=== PATIENT | female | born 1990 | race Hispanic/Latino ===

== ENCOUNTER 2018-09-08 16:43 | Emergency (ER) | payer SELFPAY ==
[~2018-09-08] VITALS: Ht 162.6 cm; Wt 77.1 kg
--- OUTSIDE RECORDS SUMMARY | 2018-09-08 16:46 | XMS REPORT | Clinical Summary ---
Author Author [facility] Organization [facility] Address Unknown Phone Unavailable Care Team Providers Care Batch Maker Name Role Phone Asked, No Pcp PCP Unavailable Allergies No Known Allergies Medications End Date Status Medication Sig Dispensed Refills Start Date 07/28/2018 methocarbamol Take 1 tablet 120 tablet 0 (ROBAXIN-750) 750 MG (750 mg 9 tablet total) by mouth 4 (four) times a day for 30 days. Active Problems Not on file Encounters Care Team Description Date Type Specialty Edmund Fernandez DO Acute low back pain due to trauma (Primary Dx) 06/28/2018 Emergency Emergency Medicine after 09/07/2017 Social History Date Tobacco Use Types Packs/Day Years Used Never Smoker Smokeless Tobacco: Never Used Alcohol Use Drinks/Week oz/Week Comments Yes socially Sex Assigned at Date Recorded Not on file Industry Job Start Date Occupation Not on file Not on file Not on file Travel End Travel History Travel Start No recent travel history available. Last Filed Vital Signs Time Taken Vital Sign Reading 06/28/2018 6:39 AM [facility] Blood Pressure 118/62 06/28/2018 6:39 AM [facility] Pulse 87 06/28/2018 3:49 AM [facility] Temperature 36.8 C (98.2 F) 06/28/2018 6:39 AM [facility] Respiratory Rate 17 06/28/2018 6:39 AM [facility] Oxygen Saturation 98% - Inhaled Oxygen - Concentration 06/28/2018 3:49 AM [facility] Weight 83.9 kg (185 lb) 06/28/2018 3:49 AM [facility] Height 162.6 cm (5' 4") 06/28/2018 3:49 AM [facility] Body Mass Index 31.76 Plan of Treatment Health Maintenance Due Date Last Done Comments CERVICAL CANCER SCREENING 2011 INFLUENZA VACCINE 12/07/2018 Procedures Comments Procedure Name Priority Date/Time Associated Diagnosis XR PELVIS 3+ VW STAT 06/28/2018 6:06 AM [facility] XR LUMBAR SPINE COMPLETE STAT 06/28/2018 4+ VW 6:04 AM [facility] HCG QUALITATIVE, URINE STAT 06/28/2018 SCREEN 4:59 AM [facility] after 09/07/2017 Results * XR Pelvis 3+ Vw (06/28/2018 6:06 AM [facility]) Narrative Performed At EXAMINATION:XR PELVIS 3VW [facility] CLINICAL HISTORY:Pelvic fxknown or suspected, right hip pain post fall COMPARISON:None. IMPRESSION: 1.The pelvic ring is intact. 2.The hips are symmetric in alignment. 3.There is no evidence to suggest acute fracture. [facility]-[id number] Procedure Note Interface, Radiology Results Incoming - 06/28/2018 6:12 AM [facility] EXAMINATION: XR PELVIS 3 VW CLINICAL HISTORY: Pelvic fx known or suspected, right hip pain post fall COMPARISON: None. IMPRESSION: 1. The pelvic ring is intact. 2. The hips are symmetric in alignment. 3. There is no evidence to suggest acute fracture. [facility]-[id number] Performing Organization Address City/State/Zipcode Phone Number [facility] [address] [place] [address] * XR Lumbar Spine Complete 4+ Vw (06/28/2018 6:04 AM [facility]) Narrative Performed At EXAMINATION:XR LUMBAR SPINE COMPLETE 4VW [facility] CLINICAL HISTORY:back painfall TECHNIQUE: AP, lateral bilateral posterior oblique, views of the lumbar spine were obtained. COMPARISON: None. IMPRESSION: There are 5 ljp-[id number]-lsvojet lumbar type vertebrae. There is normal lumbar lordosis. Lumbar vertebral body and intervertebral disc heights are grossly maintained. No acute lumbar spine fracture or listhesis is identified. There are no significant lumbar spine degenerative changes identified. On the oblique views, there is no evidence of spondylolysis. [facility]-[id number] Procedure Note Interface, Radiology Results Incoming - 06/28/2018 6:11 AM [facility] EXAMINATION: XR LUMBAR SPINE COMPLETE 4 VW CLINICAL HISTORY: back pain fall TECHNIQUE: AP, lateral bilateral posterior oblique, views of the lumbar spine were obtained. COMPARISON: None. IMPRESSION: There are 5 [id number]-parxpmz lumbar type vertebrae. There is normal lumbar lordosis. Lumbar vertebral body and intervertebral disc heights are grossly maintained. No acute lumbar spine fracture or listhesis is identified. There are no significant lumbar spine degenerative changes identified. On the oblique views, there is no evidence of spondylolysis. [id number] Performing Organization Address City/[facility]/Zipcode Phone Number [facility] [address] [place] [address] * hCG qualitative, urine screen (06/28/2018 4:59 AM [facility]) hCG qualitative, urine Negative Negative DON GANT Comment: [facility] The manufacturers stated sensitivity of HcG test for serum is >/=10 mIU/ml and urine is >/=20mIU/ml. Specimen Urine Performing Organization Address [facility] [place] [address] [place] [phone] PATHOLOGY AND GENOMIC MEDICINE [facility] [id number] [place] [phone] [facility] after 09/07/2017 Advance Directives Patient has advance care planning documents on file. For more information, eve e contact: Don Gant [address] [place] [address]
== END 2018-09-08 17:32 | disposition left against medical advice (07) ==
LOC: ER 16:43
DX: O20.9 Hemorrhage in early pregnancy, unspecified (principal); O20.0 Threatened abortion